=== PATIENT | male | born 1965 | race Two or more races ===

== ENCOUNTER 2025-02-14 17:32 | Inpatient (IN) | payer OTHER ==
[~2025-02-14] VITALS: Ht 162.6 cm; Wt 74.8 kg
[2025-02-14] MEDS ORDERED: DEPAKOTE ER500 MG PO (17:51)
[2025-02-14] MEDS ORDERED: SEROQUEL25 MG PO (17:51)
[2025-02-14] MEDS ORDERED: ATIVAN0.5 M1 PO (17:52)
[2025-02-14 18:36] LABS: HEMATOCRIT 37.3 % (39.0-48.0); HEMOGLOBIN 12.7 g/dL (13-16.00); MEAN CELL VOLUME 86.4 fL (80.0-100.00); MEAN CORPUSCULAR HEMOGLOBIN 29.3 pg (27.00-32.0); MEAN CORPUSCULAR HGB CONC 33.9 g/dl (32.0-36.0); PLATELET COUNT 175 K/uL (150-450); RED BLOOD COUNT 4.32 M/uL (4.00-6.00); RED CELL DISTRIBUTION WIDTH 14.4 % (11.5-14.5)
[2025-02-14 18:41] LABS: PH,URINE 5.5 (5.0-8.0); URINE APPEARANCE Cloudy; URINE BILIRRUBIN Negative (NEGATIVE); URINE BLOOD Large; URINE COLOR Yellow; URINE GLUCOSE Negative (NEGATIVE); URINE KETONE Trace (NEGATIVE); URINE LEUKOCYTE Moderate; URINE NITRATE Positive
[2025-02-14 18:48] LABS: URINE WBC 2393.6 uL (0.0-23.2)
[2025-02-14 18:59] LABS: URINE BACTERIA > 9821.5 uL (0.0-1933); URINE CAST 0.73 uL (0.0-1.40); URINE PROTEIN 300 (NEGATIVE)
[2025-02-14 19:56] LABS: ALBUMIN 3.4 gm/dL (3.4-5.0); BILIRUBIN TOTAL 0.32 mg/dL (0.3-1.2); CALCIUM 8.7 mg/dL (8.5-10.1); CREATININE SERUM 0.93 mg/dL (0.70-1.30); GFR 82.6; GLOBULINA 4.2 G/DL (2.4-3.5); POTASSIUM 3.84 mEq/L (3.5-5.1); TOTAL PROTEIN 7.6 gm/dL (6.4-8.2)
[2025-02-14 20:32] LABS: PROSTATIC SPECIFIC ANTIGEN 27.7 NG/ML (0.010-4.00)
[2025-02-14] MEDS ORDERED: CEFTRIAXONE SODIUM 2,000 MG VIAL IV ONE (21:15)
[2025-02-14] MEDS ORDERED: 0.9 % SODIUM CHLORIDE 1,000 ML IV SCH (21:15)
[2025-02-14] MEDS ORDERED: ACETAMINOPHEN 500 MG GEL..CAP PO PRN (21:15)
[2025-02-14] MEDS ORDERED: TAMSULOSIN HCL 0.4 MG CAP PO SCH (21:22)
[2025-02-14] MEDS ORDERED: TAMSULOSIN HCL 0.4 MG CAP PO ONE (21:45)
[2025-02-14] MEDS ORDERED: CEFTRIAXONE SODIUM 2,000 MG VIAL ONE (21:48)
[2025-02-14 23:38] LABS: INR 0.95; PARTIAL THROMBOPLASTIN TIME 28.2 SECONDS (22.0-34.0); PROTHROMBIN TIME 10.4 SECONDS (9.0-11.5)
[2025-02-15] VITALS: BP 114/63; O2SAT 98
[2025-02-15 05:47] VITALS: BP 132/70; O2SAT 96
[2025-02-15 08:00] VITALS: BP 125/75; O2SAT 96
[2025-02-15] MEDS ORDERED: FAMOTIDINE/PF 20 MG in 0.9 % SODIUM CHLORIDE 8 ML IV PUSH SCH (09:00)
[2025-02-15] MEDS ORDERED: CEFTRIAXONE SODIUM 2,000 MG in 0.9 % SODIUM CHLORIDE 100 ML IV SCH (09:00)
[2025-02-15] MEDS ORDERED: ENOXAPARIN SODIUM 40 MG/0.4 ML SYRINGE SUBCUTANEO SCH (09:00)
[2025-02-15] MEDS ORDERED: DIVALPROEX SODIUM 500 MG TAB.ER.24H PO SCH ×2 (09:00→17:00)
[2025-02-15] MEDS ORDERED: QUETIAPINE FUMARATE 25 MG TABLET PO SCH (09:00)
[2025-02-15] MEDS ORDERED: LORazepam 1 MG TABLET PO SCH (13:00)
[2025-02-15 15:35] VITALS: BP 131/72; O2SAT 99
[2025-02-16 00:17] VITALS: BP 114/68; O2SAT 97
[2025-02-16 08:00] VITALS: BP 147/78; O2SAT 100
[2025-02-16] MEDS ORDERED: CIPROFLOXACIN IN 5 % DEXTROSE 400 MG/200 ML PIGGYBAG IV SCH (17:00)
[2025-02-16 17:22] VITALS: BP 117/69; O2SAT 100
[2025-02-16 23:58] VITALS: BP 134/73; O2SAT 99
[2025-02-17 07:40] LABS: HEMATOCRIT 34.4 % (39.0-48.0); HEMOGLOBIN 11.7 g/dL (13-16.00); MEAN CORPUSCULAR HEMOGLOBIN 29.7 pg (27.00-32.0); MEAN CORPUSCULAR HGB CONC 34.1 g/dl (32.0-36.0); PLATELET COUNT 176 K/uL (150-450); RED BLOOD COUNT 3.95 M/uL (4.00-6.00); RED CELL DISTRIBUTION WIDTH 14.3 % (11.5-14.5)
[2025-02-17 07:52] VITALS: BP 149/81; O2SAT 97; O2SAT 99
[2025-02-17 08:06] LABS: BILIRUBIN TOTAL 0.19 mg/dL (0.3-1.2); CALCIUM 8.6 mg/dL (8.5-10.1); CREATININE SERUM 0.8 mg/dL (0.70-1.30); GFR 98.27; GLOBULINA 3.5 G/DL (2.4-3.5); MAGNESIUM 2.2 mg/dL (1.8-2.4); PHOSPHOROUS 3.1 mg/dL (2.5-4.9); POTASSIUM 4.16 mEq/L (3.5-5.1); TOTAL PROTEIN 6.5 gm/dL (6.4-8.2)
[2025-02-17 08:09] LABS: C-REACTIVE PROTEIN 2.21 MG/DL (0.00-0.29)
[2025-02-17 08:30] LABS: PH,URINE 5.5 (5.0-8.0); URINE APPEARANCE Clear; URINE BILIRRUBIN Negative (NEGATIVE); URINE BLOOD Small; URINE COLOR Yellow; URINE GLUCOSE Negative (NEGATIVE); URINE KETONE Negative (NEGATIVE); URINE LEUKOCYTE Negative; URINE NITRATE Negative; URINE PROTEIN Trace (NEGATIVE); URINE UROBILINOGEN 0.2 E.U./dl
[2025-02-17 08:33] LABS: URINE BACTERIA 23.2 uL (0.0-1933); URINE RBC 5.8 uL (0.0-20.8); URINE WBC 41.2 uL (0.0-23.2)
[2025-02-17] MEDS ORDERED: FAMOtidine 20 MG TABLET PO SCH (21:00)
== END 2025-02-17 15:08 | disposition home or self-care (01) | DRG 690 ==
LOC: ER 17:34 → SEC-K 21:56 → SURG 21:56
PROVIDERS: General Practice; Internal Medicine Infectious Disease; Preventive Medicine Public Health & General Preventive Medicine; ADMIT Student in an Organized Health Care Education/Training Program; ATTEND Student in an Organized Health Care Education/Training Program
PROC: BW21ZZZ Computerized Tomography (CT Scan) of Abdomen and Pelvis (ICD-10-PCS; principal; 2025-02-14)
DX: N39.0 Urinary tract infection, site not specified (principal); N41.0 Acute prostatitis; B96.29 Other Escherichia coli [E. coli] as the cause of diseases classified elsewhere